=== PATIENT | male | born 1955 | race Caucasian/White ===

== ENCOUNTER 2018-09-12 06:44 | Observation (INO) | payer OTHER ==
[~2018-09-12] VITALS: Ht 172.7 cm; Wt 94.1 kg
[2018-09-12 06:55] VITALS: Ht 172.7 cm; Wt 94.1 kg
--- NOTE | 2018-09-12 07:15 | NUR ---
SITTING ON GURNEY UPRIGHT USING CELLPHONE. REPORTS HE IS HERE FOR CONCERN OF FEELING INCR SOB WHILE WALKING "EVEN JUST 10 FEET" IN THE PAST 3 WEEKS. PT DENIES CP. DENIES SOB AT THIS TIME.
--- NOTE | 2018-09-12 07:36 | NUR ---
LAB AT BEDSIDE FOR BLOOD DRAWS
[2018-09-12 07:46] LABS: PLATELET COUNT 165 x10^3mcL (130-400); RED CELL DISTRIBUTION WIDTH 13.9 % (11.5-14.5)
--- NOTE | 2018-09-12 07:51 | NUR ---
PILLOW GIVEN. DECLINED BLANKET. PT HAS CALL LIGHT IN REACH
--- NOTE | 2018-09-12 07:51 | NUR ---
STS UNABLE TO URINATE AT THIS TIME
[2018-09-12 07:52] LABS: CALCIUM 9.1 mg/dL (8.5-10.1); CARBON DIOXIDE 30.5 mmol/L (21-32); CHLORIDE SERUM 96 mmol/L (98-107); GFR1 > 60 mL/min; GLUCOSE SERUM 110 mg/dL (74-106); POTASSIUM SERUM 3.2 mmol/L (3.5-5.1); SODIUM SERUM 136 mmol/L (136-145)
--- NOTE | 2018-09-12 07:56 | NUR ---
PT REPORTS PAIN TO HIS R STUMP. DR NAIDU AWARE. REDNESS TO STUMP SEEN
[2018-09-12 07:57] LABS: ALBUMIN 4.1 g/dL (3.4-5.0); ALKALINE PHOSPHATASE 75 U/L (46-116); ALT/SGPT 113 U/L (16-63); AST/SGOT 126 U/L (15-37); BILIRUBIN TOTAL 1.1 mg/dL (0.20-1.00)
--- NOTE | 2018-09-12 08:54 | NUR ---
DR NAIDU SPOKE WITH PT REGARDING TEST RESULTS AND POC
--- NOTE | 2018-09-12 08:55 | NUR ---
PT USING HEADPHONES AND SITTING ON GURNEY WITH NO S/S OF RESP DISTRESS
--- NOTE | 2018-09-12 09:02 | NUR ---
RT AT BEDSIDE FOR ABG
--- NOTE | 2018-09-12 10:41 | NUR ---
TAKEN TO CT SCAN VIA GHANSHYAM
[2018-09-12] MEDS ORDERED: AMLODIPINE BES2.5 M1 (11:04)
--- NOTE | 2018-09-12 11:26 | NUR ---
DR NAIDU INFORMED PT OF TEST RESULTS
--- NOTE | 2018-09-12 13:16 | NUR ---
REPORT GIVEN TO WANG
[2018-09-12 14:05] VITALS: BP 140/99
--- NOTE | 2018-09-12 14:09 | NUR ---
RECEIVED PT FROM ED VIA JAMEE. ORIENTED PT TO ROOM AND SURROUNDINGS. IV NOTED TO LAC PATENT AND INTACT. INSTRUCTED PT ON THE USE OF CALL LIGHT FOR ASSISTANCE. ENDORSED PT TO PRIMARY NURSE WANG
[2018-09-12 16:14] LABS: UA SPECIFIC GRAVITY <=1.005 (1.005-1.035); microscopic required? YES; urine erythrocyte NEGATIVE (NEGATIVE)
--- NOTE | 2018-09-12 16:16 | NUR ---
PT ADMITS DRINKING APPROXIMATELY 1 PINT OF ALCOHOL 5 DAYS/WEEK. PT STATES LAST DRINK "ABOUT 4 DAYS AGO". DENIES BONE, NO DIZZINESS, NO N/V. NO TREMORS NOTED. NO S/S OF ACUTE DISTRESS. WILL CONT. TO MONITOR.
[2018-09-12 17:47] VITALS: BP 136/88
--- NOTE | 2018-09-12 18:37 | NUR ---
PT COMPLAINT OF PAIN TO RLE, RATES 6/10, WORSE WITH MOVEMENT, GIVEN PAIN MED. SEE MAR. NO S/S OF ACUTE DISTRESS. NO SOB ON ROOM AIR. RR EVEN/UNLABORED. DRY COUGH NOTED. NO BONE. NO DIZZINESS. NO N/V. NO CHEST PAIN. EDUCATED TO REMAIN NPO AFTER MIDNIGHT FOR STRESS TEST TOMORROW. VERBALIZED UNDERSTANDING. AA/OX4. BED IN LOW POSITION. CALL LIGHT WITHIN REACH. WILL ENDORSE TO ONCOMING SHIFT.
[2018-09-12 19:20] VITALS: BP 131/81
--- NOTE | 2018-09-12 19:20 | NUR ---
RECEIVED PT AWAKE ALERT AND VERBALLY RESPONSIVE.BREATHING EASY AND NON-LABORED.TOLERATING ROOMAIR @ 93%.REPORTS SOB ON EXERTION OR TRANSFER FROM W/C TO BED.CT 5/10 TO CONSTANT SHARP PAIN FROM R STUMP.R STUMP REDDENED,SOME SWELLING AND TENDERNESS TO TOUCH.BP 131/81 MMHG,HR 91.WILL CONTINUE TO MONITOR.
--- NOTE | 2018-09-13 04:42 | NUR ---
PT SLEPT WITH INTERVALS.MEDICATED WITH NORCO 10/325 MG PO X2 FOR R STUMP PAIN WITH GOOD RELIEF.NO ASE NOTED FROM CLEOCIN IV ATB.ALL NEEDS MET.WILL CONTINUE TO MONITOR.
[2018-09-13 06:16] VITALS: BP 114/52
--- NOTE | 2018-09-13 07:25 | NUR ---
RECEIVED PT FROM NIGHT NURSE. PT IS LAYING DOWN IN BED WITH HOB UP. RESPIRATIONS EVEN AND UNLABORED ON ROOM AIR. PT LOOKS TO BE IN NO ACUTE DISTRESS AT THIS TIME. REDNESS AND SWELLING TO RIGHT STUMP. BED IN LOWEST POSITION. IV SITE PATENT WITH NO SIGNS OF ERYTHEMA OR SWELLING. BED IN LOWEST POSITION. CALL LIGHT WITHIN REACH. WILL CONTINUE TO MONITOR.
[2018-09-13 08:11] VITALS: BP 127/91
[2018-09-13 12:01] VITALS: BP 150/80
--- NOTE | 2018-09-13 12:38 | NUR ---
PT BEING TAKEN DOWN FOR STRESS TEST
[2018-09-13 16:31] VITALS: BP 143/84
--- NOTE | 2018-09-13 17:04 | NUR ---
CALL NOTIFIED STRESS TEST RESULT - UNREMARKABLE STUDY WITHOUT PERFUSION DEFECTS TO SUGGEST INFARCT OR ISCHEMIA, EF 65%; PER CARDIO SATNDPOINT PATIENT MAY DISCHARGE. NO ORDERS. PRIMARY RN - ANGELINA WAS INFORM.
--- NOTE | 2018-09-13 18:30 | NUR ---
TALKED WITH PT ABOUT WHEELCHAIR. PT STATES THAT HE HAS A WHEELCHAIR AT HOME BUT WILL NEED A WHEELCHAIR WAS BEING BROUGHT TO THE LOBBY.
[2018-09-13 18:52] VITALS: BP 143/84
--- NOTE | 2018-09-13 18:52 | NUR ---
PT IS SITTING IN BED. BED IS IN LOWEST POSITION. RESPIRATIONS EVEN AND UNLABORED ON ROOM AIR. PT LOOKS TO BE IN NO ACUTE DISTRESS AT THIS TIME. PT STATES IS COMING TO TAKE HIM HOME WHEN DC IS FINALIZED. WILL ENDORSE TO ONCOMING SHIFT.
--- NOTE | 2018-09-13 19:24 | NUR ---
PT AWAKE, ALERT AND ORIENTED AT TIME OF DISCHARGE. PT DISCHARGED HOME AND WENT TO LOBBY VIA WHEELCHAIR BY [employer] OPERATOR ACCOMPANIED BY . BELONGINGS IN HAND. EDUCATION PROVIDED TO PT WELL FOLLOW UP APPOINTMENT WITH PCP. PT VERBALIZED UNDERSTANDING OF THIS EDUCATION. NO NEW PRESCRIPTIONS FOR THE PT. IV WAS DC'ED BY THE PT. PT PULLED OFF ID BAND, ID BAND TRASHED IN THE PROPER TRASH SHREDDER. PT STATES HAS A WHEELCHAIR AT HOME.
== END 2018-09-13 19:30 | disposition home or self-care (01) | DRG 603 ==
LOC: ED 06:44 → MU 13:00
PROVIDERS: Emergency Medicine; ADMIT Internal Medicine Pulmonary Disease
DX: L03.115 Cellulitis of right lower limb (principal); R06.00 Dyspnea, unspecified; E87.6 Hypokalemia; B19.20 Unspecified viral hepatitis C without hepatic coma; I10 Essential (primary) hypertension; F10.10 Alcohol abuse, uncomplicated; E66.9 Obesity, unspecified; Z68.33 Body mass index [BMI] 33.0-33.9, adult; Z89.611 Acquired absence of right leg above knee; Z87.891 Personal history of nicotine dependence
CPT/HCPCS: 36600; 85378; A9500; G0378; J0696; J1650; J2785; J3010; J3490; J7030; J7620; Q0092; Q9967